=== PATIENT | female | born 1950 | race Caucasian/White ===

== ENCOUNTER 2022-05-28 07:24 | Day surgery (SDC) | payer MEDICARE, OTHER ==
[~2022-05-28] VITALS: Ht 167.6 cm; Wt 80.2 kg
[2022-05-28] MEDS ORDERED: normal saline 1000ml 1,000 ML IV SCH (07:39)
[2022-05-28] MEDS ORDERED: PREG50CA PO (07:53)
[2022-05-28] MEDS ORDERED: ACET-812 PO (07:54)
[2022-05-28] MEDS ORDERED: VENL75CA61 PO (07:55)
[2022-05-28] MEDS ORDERED: TOPI25TA49 PO (07:55)
[2022-05-28] MEDS ORDERED: ALBU90AE INH (07:56)
[2022-05-28] MEDS ORDERED: GLIM2TAB6 PO (07:56)
[2022-05-28] MEDS ORDERED: DILT-36 PO (07:57)
[2022-05-28] MEDS ORDERED: METF-438 PO (07:58)
[2022-05-28] MEDS ORDERED: ATOR20TA66 PO (07:58)
[2022-05-28] MEDS ORDERED: LEVO100T9 PO (07:59)
[2022-05-28] MEDS ORDERED: LOSA100T57 PO (07:59)
[2022-05-28] MEDS ORDERED: OMEP40CA21 PO (07:59)
[2022-05-28 08:00] VITALS: BP 138/66
[2022-05-28 08:34] LABS: BASOPHILS % (AUTO) 0.6 % (0-1); EOSINOPHILS # (AUTO) 0.2 X10'3 (0-0.9); HEMOGLOBIN 12.9 g/dl (12.0-16.0); LYMPHOCYTES # (AUTO) 1.8 X10'3 (1.1-4.8); LYMPHOCYTES % (AUTO) 22.5 % (21-51); MEAN CORPUSCULAR HGB CONC 33.1 g/dL (33.0-36.5); MEAN CORPUSCULAR VOLUME 84.5 FL (78-98); MEAN PLATELET VOLUME 9.2 FL (7.4-10.4); MONOCYTES # (AUTO) 0.7 X10'3 (0-0.9); MONOCYTES % (AUTO) 8.2 % (2-12); NEUTROPHILS # (AUTO) 5.4 X10'3 (1.8-7.7); NEUTROPHILS % (AUTO) 65.7 % (42-75); PLATELET COUNT 237 X10'3 (140-440); RED BLOOD COUNT 4.62 X10'6 (4.20-5.60); RED CELL DISTRIBUTION WIDTH 15.5 % (11.5-14.5); WHITE BLOOD COUNT 8.2 X10'3 (4.5-11.0)
[2022-05-28 08:40] LABS: ALBUMIN 3.8 G/DL (3.4-5.0); ANION GAP 6 (8-16); BLOOD UREA NITROGEN 16 MG/DL (7-18); BUN/CREATININE RATIO 17.2 (6.6-38.0); CALCIUM 8.5 MG/DL (8.5-10.1); CHLORIDE 109 MMOL/L (99-107); CREATININE 0.93 MG/DL (0.40-0.90); GLUCOSE 98 MG/DL (70-104); MAGNESIUM 1.9 MG/DL (1.5-2.4); POTASSIUM 3.8 MMOL/L (3.5-5.1); SODIUM 144 MMOL/L (135-145); TOTAL CARBON DIOXIDE 29.2 MMOL/L (24-32); eGFR 60 ML/MIN
[2022-05-28] MEDS ORDERED: LIDOCAINE 2%/EPI 1:100,000 inj. Multi-dose 20 ML VIAL ONE (10:04)
[2022-05-28 11:25] VITALS: BP 134/62
[2022-05-28 11:40] VITALS: BP 131/65
[2022-05-28 11:55] VITALS: BP 130/66
[2022-05-28 12:10] VITALS: BP 137/58
== END 2022-05-28 12:15 | disposition home or self-care (01) ==
LOC: SSTAY O 07:24
PROVIDERS: ATTEND Internal Medicine Cardiovascular Disease
DX: Z45.09 Encounter for adjustment and management of other cardiac device (principal); I47.1 Supraventricular tachycardia; I49.5 Sick sinus syndrome; E78.5 Hyperlipidemia, unspecified; I10 Essential (primary) hypertension; J45.909 Unspecified asthma, uncomplicated; E03.9 Hypothyroidism, unspecified; E11.39 Type 2 diabetes mellitus with other diabetic ophthalmic complication; H40.9 Unspecified glaucoma; Z87.442 Personal history of urinary calculi; Z90.710 Acquired absence of both cervix and uterus; Z98.51 Tubal ligation status; Z96.643 Presence of artificial hip joint, bilateral; Z98.49 Cataract extraction status, unspecified eye; Z98.890 Other specified postprocedural states; Z88.5 Allergy status to narcotic agent; Z88.8 Allergy status to other drugs, medicaments and biological substances; Z82.49 Family history of ischemic heart disease and other diseases of the circulatory system; Z82.5 Family history of asthma and other chronic lower respiratory diseases
CPT/HCPCS: 33286; 36415; 80048; 82948; 83735; 85025; 85610; 93005; J7030; A6258; A6449